=== PATIENT | female | born 1990 | race African-American/Black ===

== ENCOUNTER 2019-06-20 11:47 | Inpatient (IN) | payer MEDICAID ==
[~2019-06-20] VITALS: Ht 162.6 cm; Wt 70.4 kg
[2019-06-20 12:10] VITALS: BP 126/88
--- NOTE | 2019-06-20 12:10 | NUR ---
29 year old female admitted to room # 406-2 for stabilization. Reports an addiction to crack and heroin last used 24 hours prior to admission. Compliant with admission procedure. See assessment forms for additional information about patient status.
--- NOTE | 2019-06-20 12:22 | NUR ---
PATIENT MEETS [facility]. CINA=17. PATIENT IS WANTING RESIDENTIAL TREATMENT FOR HER AFTERCARE PLAN. [facility]AFF PROVIDED PATIENT WITH REFERRAL OPTIONS. [facility] WILL FOLLOW BACK UP WITH PATIENT. EVANGELISTA DESAI B.A. INSPECTOR REPAIRER
[2019-06-20 12:39] LABS: BASO % 0.4 % (0.0-1.0); EOS # 0.2 10*3/uL (0.0-0.4); EOS % 2.5 % (1.0-4.0); HEMATOCRIT 36.8 % (37.0-47.0); HEMOGLOBIN 12.6 g/dl (12.0-16.0); LYMPH # 3.3 10*3/uL (1.3-4.4); LYMPH % 39.3 % (27.0-41.0); MEAN CELL VOLUME 84.2 fl (81.0-99.0); MEAN CORPUSCULAR HGB 28.8 pg (27.0-31.0); MEAN CORPUSCULAR HGB CONC 34.2 g/dl (33.0-37.0); MEAN PLATELET VOLUME 10.3 fl (9.6-12.3); MONO # 0.6 10*3/uL (0.1-1.0); MONO % 6.7 % (3.0-9.0); NEUT # 4.3 10*3/uL (2.3-7.9); NEUT % 50.2 % (47.0-73.0); PLATELET COUNT AUTOMATED 235 10*3/uL (130-400); RED BLOOD COUNT 4.37 10*6/uL (4.10-5.10); RED CELL DISTRI WIDTH 11.8 % (0-14.5); WHITE BLOOD COUNT 8.5 10*3/uL (4.8-10.8)
[2019-06-20 12:54] LABS: ALKALINE PHOSPHATASE 88 U/L (45-117); BUN 10 mg/dl (7-24); CHLORIDE 105 mmol/L (98-107); CREATININE 0.62 mg/dL (0.55-1.02); POTASSIUM 3.6 mmol/L (3.5-5.1); SGOT/AST 32 IU/L (3-35); SGPT/ALT 33 U/L (12-78); SODIUM 138 mmol/L (136-145); TOTAL PROTEIN 7.3 gm/dL (6.4-8.2)
[2019-06-20 12:55] LABS: ETHYL ALCOHOL < 3.0 mg/dl (<3)
[2019-06-20 12:56] LABS: URINE AMPHETAMINES < 1000 (1000ng/ml); URINE BARBITURATES < 200 (200ng/ml); URINE BENZODIAZEPINES < 200 (200ng/ml); URINE CANNABINOIDS (THC) < 50 (50ng/ml); URINE COCAINE > 300 (300ng/ml); URINE METHADONE < 300 (300ng/ml); URINE OPIATES < 300 (300ng/ml)
[2019-06-20 12:57] LABS: BILIRUBIN NEGATIVE (NEGATIVE); BLOOD NEGATIVE (NEGATIVE); CLARITY SL CLOUDY (CLEAR); COLOR YELLOW (YELLOW); GLUCOSE NEGATIVE (NEGATIVE); KETONE TRACE (NEGATIVE); LEUKO ESTERASE NEGATIVE (NEGATIVE); NITRITE NEGATIVE (NEGATIVE); URINE PHENCYCLIDINE < 25 (25ng/ml)
[2019-06-20 13:43] LABS: BACTERIA TRACE; MUCOUS 1+
--- NOTE | 2019-06-20 13:56 | NUR ---
MEDICATED WITH PRN BENTYL PER ORDER AND REQUEST.
--- NOTE | 2019-06-20 15:05 | NUR ---
MEDICATED WITH PRN VISTARIL PER ORDER.
[2019-06-20 16:00] VITALS: BP 115/71
[2019-06-20] MEDS ORDERED: LITHIUM CARBON600 MG PO (19:15)
[2019-06-20] MEDS ORDERED: NEURONTIN600 MG PO (19:16)
[2019-06-20] MEDS ORDERED: SEROQUEL25 MG PO (19:16)
[2019-06-20] MEDS ORDERED: BUSPAR15 MG PO (19:16)
[2019-06-20 20:00] VITALS: BP 114/69
[2019-06-21] VITALS: BP 107/59
[2019-06-21 08:00] VITALS: BP 100/58
[2019-06-21 12:00] VITALS: BP 100/50
--- NOTE | 2019-06-21 15:17 | NUR ---
PATIENT HAS BEEN ACCEPTED TO [facility] FOR [facility]REAT[facility]. PATIENT IS SCHEDULED TO BE THERE June AT 2:00PM. EVANGELISTA DESAI B.A. PRODUCTION OFFICER
[2019-06-21 16:00] VITALS: BP 96/52
--- NOTE | 2019-06-21 19:36 | NUR ---
PATIENT RESTING IN BED AT TIME OF BEDSIDE REPORT. CALL LIGHT WITHIN REACH. NO COMPLAINTS AT THIS TIME.
[2019-06-21 20:00] VITALS: BP 109/61
--- NOTE | 2019-06-21 20:46 | NUR ---
PATIENT MEDICATED WITH PRN BENTYL, TRAZADONE, MOTRIN, AND REQUIP FOR C/O STOMACH CRAMPING, BACK PAIN, RESTLESS LEGS, AND REQUESTING SOMETHING FOR SLEEP. WILL MONITOR FOR EFFECTIVENESS.
--- NOTE | 2019-06-21 21:25 | NUR ---
PER PATIENT PRN MEDICATIONS EFFECTIVE.
[2019-06-22] VITALS: BP 104/66
--- NOTE | 2019-06-22 01:35 | NUR ---
24 HR chart check completed.
--- NOTE | 2019-06-22 04:45 | NUR ---
PATIENT STATES SHE WOKE UP FEELING TENSE, RESTLESS AND ANXIOUS. MEDICATED WITH PRN REQUIP, ROBAXIN, VISTARIL, AND A NICOTINE PATCH WAS APPLIED TO PATIENT'S LEFT SHOULDER. WILL MONITOR.
--- NOTE | 2019-06-22 05:40 | NUR ---
PER PATIENT, ALL PRN MEDICATIONS WERE EFFECTIVE TO HELP HER RELAX.
--- NOTE | 2019-06-22 07:58 | NUR ---
PT C/O BILATERAL LEG PAIN, TINGLING, BURNING. WHEN I REVEIWED HER MED REC IT APPEARS THAT SHE TAKES GABAPENTIN AT HOME. SHE VERIFIED DOES AND TIMES. DR AGUILAR INFORMED THAT HOME EMDICATIONS HAVE NOT BEEN CONTINUED. PER DR HANSON ONE TIME DOSE WILL BE ORDERED. I WILL CALL [facility] AND VERIFY MED REC
[2019-06-22 08:00] VITALS: BP 106/62
--- NOTE | 2019-06-22 08:45 | NUR ---
ADMINISTERED PO NEUROTIN PER ORDER. WILL MONITOR FOR EFFECTIVENESS.
--- NOTE | 2019-06-22 09:35 | NUR ---
PT STATES MEDICATION WAS EFFECTIVE IN RELIEVING BILATERAL LEG DISCOMFORT
--- NOTE | 2019-06-22 10:58 | NUR ---
SPOKE TO [facility] IN [facility] TO CONFIRM PTS HOME MEDICATIONS. PER PHARMACY PT HAS NOT FILLED MEDS SINCE 2017. VERIFIED WITH PT. PT STATES SHE SEES DR LEMA IN [facility] BUT IT HAS BEEN QUITE A WHILE. PER DR HANSON UPDATE MED LIST AND HE WILL TAKE A LOOK.
[2019-06-22] MEDS ORDERED: TOPAMAX25 M3 PO (11:06)
[2019-06-22] MEDS ORDERED: DICYCLOMINE HCL10 MG PO (11:08)
[2019-06-22] MEDS ORDERED: NAPROXEN500 MG PO (11:10)
--- NOTE | 2019-06-22 11:50 | NUR ---
24 HR CHART CHECK COMPLETE
[2019-06-22 16:00] VITALS: BP 120/63
--- NOTE | 2019-06-22 19:45 | NUR ---
PATIENT RESTING IN BED. CALL LIGHT WITHIN REACH. BED IN LOWEST POSITION.
--- NOTE | 2019-06-22 21:05 | NUR ---
PATIENT MEDICATED WITH PRN TRAZADONE AND BENTYL FOR ABDOMINAL DISCOMFORT AND SLEEP. WILL MONITOR FOR EFFECTIVENESS.
--- NOTE | 2019-06-22 21:44 | NUR ---
PATIENT STATED PRN BENTYL WAS EFFECTIVE BUT PRN TRAZADONE WAS NOT. PATIENT GIVEN SECOND DOSE OF PRN TRAZADONE PER ORDER. WILL MONITOR FOR EFFECTIVENESS.
--- NOTE | 2019-06-22 22:30 | NUR ---
PATIENT ASLEEP IN BED AT THIS TIME. RESPIRATIONS EVEN AND UNLABORED. PRN TRAZADONE EFFECTIVE.
[2019-06-23] VITALS: BP 107/61
--- NOTE | 2019-06-23 00:47 | NUR ---
24 HR chart check completed.
[2019-06-23 05:43] LABS: CREATININE 0.66 mg/dL (0.55-1.02)
--- NOTE | 2019-06-23 05:55 | NUR ---
PATIENT MEDICATED WITH PRN REQUIP FOR RESTLESS LEGS WITH NEUROPATHY. WILL MONITOR FOR EFFECTIVENESS.
[2019-06-23 06:06] LABS: BASO % 0.3 % (0.0-1.0); EOS # 0.2 10*3/uL (0.0-0.4); EOS % 2.5 % (1.0-4.0); HEMATOCRIT 35.9 % (37.0-47.0); HEMOGLOBIN 11.8 g/dl (12.0-16.0); LYMPH # 3.5 10*3/uL (1.3-4.4); LYMPH % 48.9 % (27.0-41.0); MEAN CELL VOLUME 86.3 fl (81.0-99.0); MEAN CORPUSCULAR HGB 28.4 pg (27.0-31.0); MEAN CORPUSCULAR HGB CONC 32.9 g/dl (33.0-37.0); MEAN PLATELET VOLUME 10.4 fl (9.6-12.3); MONO # 0.5 10*3/uL (0.1-1.0); MONO % 6.5 % (3.0-9.0); NEUT # 2.9 10*3/uL (2.3-7.9); NEUT % 41.2 % (47.0-73.0); PLATELET COUNT AUTOMATED 268 10*3/uL (130-400); RED BLOOD COUNT 4.16 10*6/uL (4.10-5.10); RED CELL DISTRI WIDTH 12.5 % (0-14.5); WHITE BLOOD COUNT 7.1 10*3/uL (4.8-10.8)
--- NOTE | 2019-06-23 06:45 | NUR ---
PATIENT STATED PRN REQUIP WAS SLIGHTLY EFFECTIVE. PRN NICOTINE PATCH APPLIED TO LEFT SHOULDER.
--- NOTE | 2019-06-23 07:05 | NUR ---
BEDSIDE REPORT RECEIVED FROM BOBO HERNDON
[2019-06-23 08:00] VITALS: BP 114/62
--- NOTE | 2019-06-23 08:09 | NUR ---
24 HR CHART CHECK COMPLETE
--- NOTE | 2019-06-23 08:30 | NUR ---
PT AWAKE. ASSESSMENT COMPLETE. PT C/O HEADACHE RATED 5/10. ADMINISTERED PO TYLENOL AND PO MOTRIN PER ORDER. WILL MONITOR FOR EFFECTIVENESS.
--- NOTE | 2019-06-23 09:30 | NUR ---
PT SLEEPING. RESPS EASY/REG WITH NO DISTRESS NOTED. CALL PEDRAZA I N REACH
--- NOTE | 2019-06-23 15:05 | NUR ---
PT C/O ANXIETY, BODY ACHES. ADMINISTERED PRN MEDICATION PER ORDER. WILL MONITOR FOR EFFECTIVENESS.
--- NOTE | 2019-06-23 15:17 | NUR ---
PT C/O CONSTIPATION. ORDER RECEIVED FOR PO DULCOLAX
--- NOTE | 2019-06-23 15:45 | NUR ---
DULCOLAX WAS GIVEN PER PATIENT REQUEST FOR COMPLAINTS OF CONSTIPATION. WILL MONITOR FOR EFFECTIVENESS.
[2019-06-23 16:00] VITALS: BP 123/78
[2019-06-23 20:00] VITALS: BP 121/76
--- NOTE | 2019-06-23 21:25 | NUR ---
PATIENT COMPLAINS OF INSOMNIA. MEDICATED PER ORDER. WILL CONTINUE TO MONITOR FOR RELIEF. VOICES NO OTHER CONCERNS AT THIS TIME. RESTING IN BED. CALL LIGHT WITHIN REACH.
--- NOTE | 2019-06-23 22:09 | NUR ---
FIRST DOSE OF TRAZADONE INEFFECTIVE. REMEDICATED. WILL CONTINUE TO MONITOR FOR RELIEF. PATIENT RESTING IN BED. CALL LIGHT WITHIN REACH
--- NOTE | 2019-06-23 23:24 | NUR ---
TRAZADONE EFFECTIVE PER PT
[2019-06-24] VITALS: BP 117/72
--- NOTE | 2019-06-24 00:53 | NUR ---
Patient resting quietly with no c/o discomfort. Respirations easy and regular. Vital signs stable. No overt distress. HISSOM,ISABEL
--- NOTE | 2019-06-24 01:11 | NUR ---
24 HR chart check completed.
--- NOTE | 2019-06-24 07:21 | NUR ---
ROBAXIN 750 MG,VISTARIL 50 MG AND MOTRIN 600 MG GIVEN FOR C/O PAIN TO BACK,9/10, AND ANXIETY.
[2019-06-24 08:00] VITALS: BP 116/73
[2019-06-24] MEDS ORDERED: NATURE'S BLEND F1 MG PO (09:15)
[2019-06-24] MEDS ORDERED: METHOCARBAMOL750 M1 PO (09:15)
[2019-06-24] MEDS ORDERED: SENNA8.6 MG PO (09:15)
[2019-06-24] MEDS ORDERED: ROPINIROLE HYD0.5 MG PO (09:15)
[2019-06-24] MEDS ORDERED: THERA TABLET400 MCG PO (09:15)
[2019-06-24] MEDS ORDERED: VITAMIN B-1100 M1 PO (09:15)
--- NOTE | 2019-06-24 09:20 | NUR ---
[facility] REP IN TO SEE PT AND NOTIFIED HER THAT INSURANCE DIDN'T COVER TRANSPORTATION. PT SETTING UP TRANSPORTATION HERSELF.
--- NOTE | 2019-06-24 10:45 | NUR ---
Discharge instructions reviewed with patient/family. Patient receptive and verbalizes understanding. Follow-up care arranged. Written instructions given to patient/family. JOSE M EVANS
== END 2019-06-24 10:45 | DRG 773 ==
LOC: 4E 11:47
PROVIDERS: Internal Medicine; ADMIT Internal Medicine
DX: F11.23 Opioid dependence with withdrawal (principal); R06.82 Tachypnea, not elsewhere classified; E66.3 Overweight; G89.29 Other chronic pain; F17.210 Nicotine dependence, cigarettes, uncomplicated; E44.0 Moderate protein-calorie malnutrition; Z71.6 Tobacco abuse counseling; Z68.26 Body mass index [BMI] 26.0-26.9, adult